=== PATIENT | female | born 1960 | race Two or more races ===

== ENCOUNTER → 2017-12-16 | Emergency (ER) | payer SELFPAY ==
[~2017-12-16] VITALS: Ht 157.5 cm; Wt 68.0 kg
[~2017-12-16] MED LIST: ACETAMINOPHEN 650 MG/20.3 ML UDC ONE; ACETAMINOPHEN 650 MG/20.3 ML UDC PO ONE; PSEUDOEPHEDRINE HCL 30 MG TABLET ONE; PSEUDOEPHEDRINE HCL 30 MG TABLET PO ONE
--- NOTE | 2017-12-16 14:24 | NUR ---
PT REC'D TO ER C/O FLU LIKE SYMTOMS
--- NOTE | 2017-12-16 14:37 | NUR ---
PT GIVEN MEDS PER MD ORDERS
[2017-12-16 14:40] VITALS: BP 115/72
--- NOTE | 2017-12-16 14:40 | NUR ---
Patient discharged to home in stable condition. Written and verbal after care instructions given. Patient verbalizes understanding of instruction.PT. VERBALIZED UNDERSTANDING OF AFTERCARE INSTRUCTIONS.
== END | disposition home or self-care (01) ==
LOC: ER 13:13
DX: B34.9 Viral infection, unspecified (principal)
CPT/HCPCS: 99283; A4606; Z7610